=== PATIENT | male | born 1990 | race Caucasian/White ===

== ENCOUNTER 2022-01-27 06:16 | Emergency (ER) | payer SELFPAY ==
[2022-01-27 06:33] VITALS: BP 120/78; PULSE 65; RESP 16; TEMP 99.3; BMI 20.7
[2022-01-27] MEDS ORDERED: SODIUM CHLORIDE 1,000 ML IV STA (06:47)
[2022-01-27] MEDS ORDERED: FAMOTIDINE 20 MG/50 ML IVPB 20 MG/50 ML MG IVPB ONE ×2 (06:47→06:56)
[2022-01-27] MEDS ORDERED: ONDANSETRON 4 MG/2 ML VIAL IVPUSH ONE (06:47)
[2022-01-27] MEDS ORDERED: ONDANSETRON 4 MG/2 ML VIAL ONE (06:56)
[2022-01-27 08:07] LABS: HEMATOCRIT 45.8 % (35.4-49); HEMOGLOBIN 16.1 G/dL (11.7-16.9); MCH 30.5 pg (25.7-33.7); MCHC 35.1 g/dl (32.0-35.9); MEAN PLT VOLUME 7.2 fl (7.5-11.1); PLATELET COUNT 302.4 10^3/uL (134-434); RBC 5.27 10^6/uL (4.00-5.60); RDW 14.1 % (11.9-15.9); WHITE BLOOD COUNT 13.5 10^3/uL (4.0-10.8)
[2022-01-27 08:14] LABS: ALBUMIN 4.7 g/dl (3.4-5.0); BILIRUBIN,TOTAL 1.1 mg/dl (0.2-1); CALCIUM 9.7 mg/dl (8.5-10); CREATININE 0.8 mg/dl (0.55-1.3); TOT PROT 8.1 g/dl (6.4-8.2)
== END 2022-01-27 08:59 | disposition home or self-care (01) ==
LOC: FER 06:16
PROC: 3E033NZ Introduction of Analgesics, Hypnotics, Sedatives into Peripheral Vein, Percutaneous Approach (ICD-10-PCS; principal; 2022-01-27)
PROC: 3E033GC Introduction of Other Therapeutic Substance into Peripheral Vein, Percutaneous Approach (ICD-10-PCS; 2022-01-27)
PROC: 3E0337Z Introduction of Electrolytic and Water Balance Substance into Peripheral Vein, Percutaneous Approach (ICD-10-PCS; 2022-01-27)
DX: A09 Infectious gastroenteritis and colitis, unspecified (principal)
CPT/HCPCS: 36415; 80053; 85027; 99284-25

== ENCOUNTER 2023-09-06 11:08 | Emergency (ER) | payer SELFPAY ==
[2023-09-06] MEDS ORDERED: IBUPROFEN 600 MG TABLET (FP) PO ONE (11:38)
[2023-09-06] MEDS: IBUPROFEN 600 MG TABLET (FP) PO ONE (11:42)
[2023-09-06 12:04] VITALS: BP 131/83; PULSE 74; RESP 18; TEMP 98.1; BMI 21.2
== END 2023-09-06 13:48 | disposition home or self-care (01) ==
LOC: FER 11:08
PROC: 2W3QX1Z Immobilization of Right Lower Leg using Splint (ICD-10-PCS; principal; 2023-09-06)
DX: M79.671 Pain in right foot (principal); S92.354A Nondisplaced fracture of fifth metatarsal bone, right foot, initial encounter for closed fracture; X50.0XXA Overexertion from strenuous movement or load, initial encounter
CPT/HCPCS: 73630-TC-RT-FY; 99283-25